=== PATIENT | male | born 1980 | race Caucasian/White ===

== ENCOUNTER 2023-09-29 08:08 | Emergency (ER) | payer BC, SELFPAY ==
--- NOTE | 2023-09-29 08:17 | ED.GENADULT ---
HPI - General Adult General Chief complaint: Upper Respiratory Infection Stated complaint: Cough,Fatigue,Body Aches Time Seen by Provider: 09/29/23 08:18 Source: patient Mode of arrival: ambulatory Limitations: no limitations History of Present Illness HPI narrative: 42-year-old male presents to clinic today with complaints of nonproductive cough with occasional production of phlegm, fatigue, and a minor sore throat. Patient states symptoms started 2 days ago. Patient states the cough is worse at night and keeps him up. patient denies fevers, body aches, nasal congestion, shortness of breath and difficulty breathing, nausea and vomiting, abdominal pain, diarrhea. Patient reports not taking anything for his symptoms. Related Data Home Medications Medication Instructions Recorded Confirmed atorvastatin 80 mg tablet mg 09/29/23 ezetimibe 10 mg tablet mg 09/29/23 Allergies Allergy/AdvReac Type Severity Reaction Status Date / Time No Known Allergies Allergy Verified 09/29/23 08:36 Review of Systems Review of Systems: CONSTITUTIONAL: Denies fever, chills, or sweats. EYES: Denies visual changes, redness, or discharge. ENT: Denies rhinorrhea, congestion, positive minor sore throat, and denies otalgia. CARDIOVASCULAR: Denies chest pain, palpitations, or edema. RESPIRATORY: Positive cough, denies dyspnea. GASTROINTESTINAL: Denies abdominal pain, nausea, vomiting, or diarrhea. GENITOURINARY: Denies dysuria or hematuria. SKIN: Denies rash or itching. MUSCULOSKELETAL: Denies back pain, joint pain, or myalgia. NEUROLOGIC: Denies headache, numbness, or weakness. PSYCHIATRIC: Denies anxiety or depression. [facility] Past Medical History Medical History (Updated 09/29/23 @ 08:49 by RANJAN Escobar) Hypercholesteremia Comments At the time of my signature I agree with nursing past medical history, surgical, social, and family history. There is no relevant family history pertinent to the presenting complaint. Exam Narrative: GENERAL: Well-appearing, well-nourished, and in no acute distress. HEAD: Normocephalic, atraumatic. EYES: PERRLA and EOMI. ENT: Nares clear, bilateral rhinorrhea of mucousy drainage, and negative for epistaxis. Mucous membranes moist and intact. posterior oropharynx is with out drainage, erythema, or exudate. bilateral TMs visualized pearly velazquez without erythema or edema. NECK: Supple. No lymphadenopathy CHEST: Clear to auscultation. No respiratory distress. HEART: Regular rate and rhythm. No murmur heard. Normal peripheral pulses. ABDOMEN: Soft, nontender, nondistended, normal active bowel sounds. EXTREMITIES: Normal range of motion. No edema. SKIN: Warm, dry, no rash. NEURO: No focal deficits. Alert and oriented x3. Course Course Level of Care: Express Care Visit Vital Signs Vital signs: vital signs reviewed Medical Decision Making MDM Narrative Medical decision making narrative: based on patient's symptoms, physical exam, and negative flu, COVID, and strep tests, I discussed with the patient benefits of symptom management and will send home to self-care. Patient agreed. Differential Diagnosis Differential Diagnosis: differential diagnosis: Allergic rhinitis, chronic sinusitis, tonsillitis, acute sinusitis, infectious mononucleosis, seasonal influenza, pertussis, diphtheria, meningococcal disease, viral syndrome, viral bronchitis, RSV, COVID-19 Critical Care Time Critical Care Time Critical Care Time: No Discharge Plan Discharge Clinical Impression: Viral infection, Cough Patient Disposition: Home, Self-Care Condition: Stable Instructions: Antibiotic Form, Acute Cough (ED) Additional Instructions: Viral illness may last between 7-12days; antibiotic is NOT recommended at this time. Recommend antihistamine such as Benadryl at night time and Claritin/Zyrtec/Stacey during the day Cough syrup may cause drowsiness; avoid driving or take it at night time.
[2023-09-29 08:24] VITALS: BP 133/84; PULSE 76; RESP 18; TEMP 36.5; O2SAT 98
== END 2023-09-29 09:08 | disposition home or self-care (01) ==
PROVIDERS: Emergency Provider Nurse Practitioner Family; PCP Family Medicine Sports Medicine
DX: B34.9 Viral infection, unspecified (principal); R05.9 Cough, unspecified; Z20.822 Contact with and (suspected) exposure to COVID-19; E78.00 Pure hypercholesterolemia, unspecified
CPT/HCPCS: 87426; 87804; 99203; G0463